=== PATIENT | female | born 1995 | race Two or more races ===

== ENCOUNTER 2023-11-09 14:36 | Observation (INO) | payer MEDICAID | END 2023-11-09 15:46 | disposition home or self-care (01) | LOC: LDRP 14:36 → UNDOADMOB 14:36 → LDRP 15:14 → UNDODISOB 15:46 | PROVIDERS: ADMIT Obstetrics & Gynecology; ATTEND Obstetrics & Gynecology | DX: O26.892 Other specified pregnancy related conditions, second trimester (principal); N89.8 Other specified noninflammatory disorders of vagina; Z3A.28 28 weeks gestation of pregnancy | CPT/HCPCS: 59025; 81002; 94760; G0378 ==

== ENCOUNTER 2023-12-15 09:23 | Observation (INO) | payer MEDICAID ==
[~2023-12-15] VITALS: Ht 160 cm; Wt 84.8 kg
[2023-12-15] MEDS ORDERED: PREN-96 PO (11:56)
== END 2023-12-15 12:21 | disposition home or self-care (01) ==
LOC: LDRP 11:00 → UNDOADMOB 11:00 → LDRP 11:22 → UNDODISOB 12:21
PROVIDERS: ADMIT Obstetrics & Gynecology; ATTEND Obstetrics & Gynecology
DX: O24.419 Gestational diabetes mellitus in pregnancy, unspecified control (principal); Z3A.33 33 weeks gestation of pregnancy
CPT/HCPCS: 59025; 76818; 81002; 82948; 82962; 94760; G0378

== ENCOUNTER 2023-12-22 08:28 | Observation (INO) | payer MEDICAID ==
[~2023-12-22 08:28] MED LIST: PREN-96 PO
== END 2023-12-22 11:01 | disposition home or self-care (01) ==
LOC: LDRP 09:22 → UNDOADMOB 09:22 → LDRP 09:25
PROVIDERS: ADMIT Obstetrics & Gynecology; ATTEND Obstetrics & Gynecology
DX: O24.419 Gestational diabetes mellitus in pregnancy, unspecified control (principal); O26.893 Other specified pregnancy related conditions, third trimester; R10.30 Lower abdominal pain, unspecified; O99.891 Other specified diseases and conditions complicating pregnancy; M54.9 Dorsalgia, unspecified; Z3A.34 34 weeks gestation of pregnancy
CPT/HCPCS: 59025; 76818; 81002; 82948; 82962; 94760; G0378

== ENCOUNTER 2023-12-29 08:05 | Observation (INO) | payer MEDICAID ==
[~2023-12-29] VITALS: Ht 160 cm; Wt 85.3 kg
== END 2023-12-29 13:06 | disposition home or self-care (01) ==
LOC: LDRP 11:33
PROVIDERS: ADMIT Obstetrics & Gynecology; ATTEND Obstetrics & Gynecology
DX: O24.419 Gestational diabetes mellitus in pregnancy, unspecified control (principal); Z3A.35 35 weeks gestation of pregnancy
CPT/HCPCS: 59025; 76818; 81002; 82962; 94760; G0378

== ENCOUNTER 2024-01-04 11:00 | Observation (INO) | payer MEDICAID | END 2024-01-04 12:41 | disposition home or self-care (01) | LOC: LDRP 11:00 → UNDOADMOB 11:00 → LDRP 11:13 | PROVIDERS: ADMIT Obstetrics & Gynecology; ATTEND Obstetrics & Gynecology | DX: O24.410 Gestational diabetes mellitus in pregnancy, diet controlled (principal); Z3A.36 36 weeks gestation of pregnancy | CPT/HCPCS: 59025; 76818; 81002; 82948; 82962; 94760; G0378 ==

== ENCOUNTER 2024-01-11 11:00 | Observation (INO) | payer MEDICAID ==
[2024-01-11] MEDS ORDERED: METF-370 PO (12:07)
== END 2024-01-11 12:37 | disposition home or self-care (01) ==
LOC: LDRP 11:00
PROVIDERS: ADMIT Obstetrics & Gynecology; ATTEND Obstetrics & Gynecology
DX: O24.419 Gestational diabetes mellitus in pregnancy, unspecified control (principal); Z3A.37 37 weeks gestation of pregnancy
CPT/HCPCS: 59025; 76818; 81002; 82948; 82962; 94760; G0378

== ENCOUNTER 2024-01-14 17:00 | Observation (INO) | payer MEDICAID ==
[~2024-01-14 17:00] MED LIST changes: +METF-370 PO
== END 2024-01-14 20:13 | disposition home or self-care (01) ==
LOC: LDRP 17:00
PROVIDERS: ADMIT Obstetrics & Gynecology; ATTEND Obstetrics & Gynecology
DX: O24.419 Gestational diabetes mellitus in pregnancy, unspecified control (principal); Z3A.37 37 weeks gestation of pregnancy
CPT/HCPCS: 59025; 76818; 81002; 82948; 82962; G0378

== ENCOUNTER 2024-01-17 08:00 | Observation (INO) | payer MEDICAID | END 2024-01-17 09:06 | disposition home or self-care (01) | LOC: LDRP 08:00 | PROVIDERS: ADMIT Obstetrics & Gynecology; ATTEND Obstetrics & Gynecology | DX: O24.419 Gestational diabetes mellitus in pregnancy, unspecified control (principal); Z3A.37 37 weeks gestation of pregnancy | CPT/HCPCS: 59025; 76818; 81002; 82948; 82962; 94760; G0378 ==

== ENCOUNTER 2024-01-20 08:08 | Observation (INO) | payer MEDICAID | END 2024-01-20 09:57 | disposition home or self-care (01) | LOC: UNDOADMOB 08:08 → LDRP 08:08 | PROVIDERS: ADMIT Obstetrics & Gynecology; ATTEND Obstetrics & Gynecology | DX: O24.419 Gestational diabetes mellitus in pregnancy, unspecified control (principal); O36.8130 Decreased fetal movements, third trimester, not applicable or unspecified; Z3A.38 38 weeks gestation of pregnancy | CPT/HCPCS: 59025; 76818; 81002; 82948; 82962; 94760; G0378 ==

== ENCOUNTER 2024-01-22 07:58 | Observation (INO) | payer MEDICAID | END 2024-01-22 10:00 | disposition home or self-care (01) | LOC: LDRP 07:58 | PROVIDERS: ADMIT Obstetrics & Gynecology; ATTEND Obstetrics & Gynecology | DX: O24.419 Gestational diabetes mellitus in pregnancy, unspecified control (principal); Z3A.38 38 weeks gestation of pregnancy | CPT/HCPCS: 59025; 76818; 81002; 82948; 94760; G0378 ==

== ENCOUNTER 2024-01-25 06:47 | Inpatient (IN) | payer MEDICAID ==
[~2024-01-25] VITALS: Ht 160 cm; Wt 85.7 kg
[2024-01-25] MEDS ORDERED: WITCH HAZEL-GLYCERIN PAD TOP PRN (07:15)
[2024-01-25] MEDS ORDERED: PHISODERM TOP SOLN 240ML BTL TOP PRN (07:15)
[2024-01-25] MEDS ORDERED: DERMOPLAST 60ML BOTTLE TOP PRN (07:15)
[2024-01-25] MEDS ORDERED: BUTORPHANOL TARTRATE 2 MG/1 ML VIAL IV PRN ×2 (07:15)
[2024-01-25] MEDS ORDERED: LIDOCAINE 2%HCL (LOCAL ANESTH.) INJ 20ML MDV IJ PRN (07:15)
[2024-01-25 07:37] LABS: Basophils # (auto) 0 10 ^3/uL (0-0.2); Basophils % (auto) 0.2 % (0.0-2.0); Eosinophils # (auto) 0.1 10 ^3/uL (0-0.8); Eosinophils % (auto) 1.4 % (0.0-7.0); Hematocrit 32.9 % (36.0-46.0); Hemoglobin 11.4 g/dL (12.2-16.2); Lymphocytes # (auto) 0.9 10 ^3/uL (0.4-5.4); Lymphocytes % (auto) 12.2 % (10.0-50.0); Mean Corpuscular Hemoglobin 30.8 pg (28.0-32.0); Mean Corpuscular Hgb Conc. 34.7 g/dL (32.0-36.0); Mean Corpuscular Volume 88.9 fL (80.0-100.0); Monocytes # (auto) 0.5 10 ^3/uL (0-1.3); Monocytes % (auto) 7.4 % (0.0-12.0); Neutrophils # (auto) 5.7 10 ^3/uL (1.6-8.6); Neutrophils % (auto) 78.8 % (37.0-80.0); Nucleated Red Blood Cells % 0.1 %; Red Cell Distribution Width 15.4 % (11.8-14.3); White Blood Cell 7.2 10^3/uL (4.4-10.8)
[2024-01-25 07:51] LABS: INR 0.94 (0.9-1.15); Partial Thromboplastin Time 27.5 SEC (24.5-34.5)
[2024-01-25 07:58] LABS: Alanine Aminotransferase 13 U/L (7-40); Albumin 3.7 g/dL (3.2-4.8); Alkaline Phosphatase 143 U/L (46-116); Anion Gap 9 (5-15); Aspartate Aminotransferase 11 U/L (13-40); Blood Urea Nitrogen 6 mg/dL (9-23); Calcium 9.2 mg/dL (8.7-10.4); Carbon Dioxide 20 mmol/L (20-30); Chloride 107 mmol/L (98-107); Glucose 84 mg/dL (74-106); Potassium 3.7 mmol/L (3.5-5.1); Sodium 136 mmol/L (136-145)
[2024-01-25 07:59] LABS: Bilirubin, Total 0.5 mg/dL (0.2-1.0)
[2024-01-25] MEDS ORDERED: ACCU-CHEK COMFORT CURVE STRIP VI SCH (08:00)
[2024-01-25 08:02] LABS: Urine Bacteria FEW /hpf (None Seen); Urine Blood Negative /uL (Negative); Urine Clarity Ex.Turbid (Clear); Urine Color Light-Orange (Yellow); Urine Mucus FEW (None Seen); Urine Protein, UAD TRACE (Negative); Urine Specific Gravity 1.015 (1.001-1.035); Urine Urobilinogen Normal (Negative); Urine WBC 25 /hpf (0 - 5); Urine pH 5.5 (5.0-9.0)
[2024-01-25 08:17] LABS: Amphetamine Screen, Urine Neg (NEGATIVE); Barbiturate Scree,Urine Neg (NEGATIVE); Benzodiazephine Screen, Urine Neg (NEGATIVE); Cocaine Screen, Urine Neg (NEGATIVE); Opiate Scree,Urine Neg (NEGATIVE)
[2024-01-25 08:18] LABS: Cannabinoid Screen, Urine Neg (NEGATIVE); Phencyclidine Screen, Urine Neg (NEGATIVE)
[2024-01-25] MEDS: miSOPROStol 50 MCG per PRE-CUT 1/2 TAB PO PRN (08:39)
[2024-01-25] MEDS: PENICILLIN G POT 5MIL/D5 50ML 50 ML IV ONE (08:40)
[2024-01-25] MEDS ORDERED: TERBUTALINE SULFATE 1 MG/ML 1ML VIAL SC PRN (12:30)
[2024-01-25] MEDS: PENICILLIN G POTASSIUM 2,500,000 UNITS in D5W 5% 50 ML IV SCH (12:58)
[2024-01-25] MEDS ORDERED: NALOXONE HCL 0.4 MG/ML VIAL IV ONE ×2 (13:30)
[2024-01-25] MEDS ORDERED: ePHEDrine SULFATE 50 MG/ML AMP IV ONE (13:30)
[2024-01-25] MEDS: fentaNYL CITRATE 100 MCG/2 ML VL IV ONE ×2 (14:49→14:50)
[2024-01-25] MEDS: ROPIVACAINE HCL 200 ML ONE (14:51)
[2024-01-25] MEDS: LACT. RINGERS/OXYTOCIN 20UNITS 1,000 ML IV SCH (15:40)
[2024-01-25] MEDS: LACTATED RINGER'S 1,000 ML IV SCH (16:35)
[2024-01-25] MEDS: D5W/LACTATED RINGERS 1,000 ML IV SCH (19:38)
[2024-01-26] MEDS ORDERED: ROPIVACAINE HCL 200 ML ONE ×2 (01:07→06:55)
[2024-01-26] MEDS: ePHEDrine SULFATE 50 MG/ML AMP IV ONE (02:15)
[2024-01-26] MEDS ORDERED: METHYLERGONOVINE MALEATE 0.2 MG/ML AMP IM ONE (08:28)
[2024-01-26] MEDS: LACT. RINGERS/OXYTOCIN 20UNITS 500 ML IV ONE ×2 (08:59)
[2024-01-26] MEDS: ROPIVACAINE HCL 200 ML ONE (09:00)
[2024-01-26] MEDS ORDERED: ONDANSETRON ODT 4 MG TAB PO PRN (09:00)
[2024-01-26] MEDS: fentaNYL CITRATE 100 MCG/2 ML VL ONE (09:01)
[2024-01-26] MEDS: ACETAMINOPHEN 325 MG TAB PO PRN (11:14)
[2024-01-26 15:00] VITALS: BP 96/58; PULSE 94; RESP 16; TEMP 98.8; O2SAT 96
[2024-01-26] MEDS: IBUPROFEN 600 MG TAB PO PRN (16:03)
[2024-01-26 19:00] VITALS: BP 112/58; PULSE 83; RESP 16; TEMP 97.6; O2SAT 97
[2024-01-26 23:30] VITALS: BP 102/56; PULSE 80; RESP 16; TEMP 98.2; O2SAT 97
[2024-01-27 03:00] VITALS: BP 113/56; PULSE 74; RESP 18; TEMP 98; O2SAT 98
[2024-01-27 06:50] VITALS: BP 107/57; PULSE 75; RESP 16; TEMP 97.8; O2SAT 97
[2024-01-27 11:00] VITALS: BP 112/72; PULSE 73; RESP 16; TEMP 97.6; O2SAT 98
== END 2024-01-27 11:55 | disposition home or self-care (01) | DRG 560 ==
LOC: LDRP 06:47
PROVIDERS: ADMIT Obstetrics & Gynecology; ATTEND Obstetrics & Gynecology
PROC: 10E0XZZ Delivery of Products of Conception, External Approach (ICD-10-PCS; principal; 2024-01-26)
PROC: 3E0DXGC Introduction of Other Therapeutic Substance into Mouth and Pharynx, External Approach (ICD-10-PCS; 2024-01-26)
PROC: 3E0R3BZ Introduction of Anesthetic Agent into Spinal Canal, Percutaneous Approach (ICD-10-PCS; 2024-01-26)
PROC: 00HU33Z Insertion of Infusion Device into Spinal Canal, Percutaneous Approach (ICD-10-PCS; 2024-01-26)
DX: O24.425 Gestational diabetes mellitus in childbirth, controlled by oral hypoglycemic drugs (principal); Z37.0 Single live birth; Z3A.39 39 weeks gestation of pregnancy; Z91.018 Allergy to other foods
CPT/HCPCS: 36415; 59025; 59409; 62282; 80053; 80307; 81001; 82948; 82962; 85025; 85610; 85730; 86592; 86803; 86850; 86870; 86900; 86901; 94760; 96360; 96361; 96365; 96366; 96374; G0378; J2540; J2590; J7060

== ENCOUNTER 2024-04-14 06:13 | Day surgery (SDC) | payer MEDICAID ==
[2024-04-11 11:47] LABS: Urine Bacteria None Seen /hpf (None Seen)
--- NOTE | 2024-04-11 11:47 | DVHHP ---
ADMIT DATE: 04/11/2024 CHIEF COMPLAINT: Desires bilateral tubal ligation. HISTORY OF PRESENT ILLNESS: The patient is a 28-year-old 2, para 2, admitted for laparoscopic placement of Filshie clips. She does not want any other form of contraception. Risks, complication, failure rate discussed with the patient. Possibility of exploratory laparotomy discussed with the patient. Possibility of bleeding, PE, DVT, failure rate and use of Filshie clips discussed with the patient. The patient fully understands and wishes to proceed with planned procedure. PAST MEDICAL HISTORY: None. PAST SURGICAL HISTORY: None. SOCIAL HISTORY: None. FAMILY HISTORY: None. OBSTETRIC AND GYNECOLOGIC HISTORY: Two normal vaginal delivery. REVIEW OF SYSTEMS: Consistent with HPI. PHYSICAL EXAMINATION: VITAL SIGNS: Stable, afebrile. HEENT: Within normal limits. CARDIOVASCULAR: Regular rate and rhythm. LUNGS: Clear to auscultation. BREASTS: Symmetrical. No masses. ABDOMEN: Soft, nontender, obese. PELVIC: External genitalia within normal limits. Vagina normal. Cervix grossly normal. Uterus 7 weeks size. Adnexa nonpalpable. EXTREMITIES: No clubbing, cyanosis or edema. IMPRESSION: Multiparity, desires tubal sterilization. PLAN: Laparoscopic placement of Filshie clips. Informed consent obtained. Risks, complication, failure rate discussed with the patient. Options reviewed. All questions answered. The patient fully understands. She wishes to proceed with planned procedure. The use of Filshie clips discussed with the patient. The patient fully understands. She wishes to proceed with planned procedure. DO LYUBOV Vasquez TID: [id number] RECEIPT: [id number]
[2024-04-11 12:04] LABS: Basophils # (auto) 0 10 ^3/uL (0-0.2); Basophils % (auto) 0.6 % (0.0-2.0); Eosinophils # (auto) 0.3 10 ^3/uL (0-0.8); Eosinophils % (auto) 4.4 % (0.0-7.0); Hematocrit 39.2 % (36.0-46.0); Hemoglobin 13.4 g/dL (12.2-16.2); Lymphocytes # (auto) 1.4 10 ^3/uL (0.4-5.4); Lymphocytes % (auto) 21.4 % (10.0-50.0); Mean Corpuscular Hemoglobin 29.6 pg (28.0-32.0); Mean Corpuscular Hgb Conc. 34.1 g/dL (32.0-36.0); Mean Corpuscular Volume 86.7 fL (80.0-100.0); Monocytes # (auto) 0.4 10 ^3/uL (0-1.3); Monocytes % (auto) 6.2 % (0.0-12.0); Neutrophils # (auto) 4.3 10 ^3/uL (1.6-8.6); Neutrophils % (auto) 67.4 % (37.0-80.0); Nucleated Red Blood Cells % 0.1 %; Platelet Count (auto) 266 10^3/uL (140-450); Red Blood Cells 4.52 10^6/uL (4.0-5.20); Red Cell Distribution Width 14.5 % (11.8-14.3); White Blood Cell 6.4 10^3/uL (4.4-10.8)
[2024-04-11 12:19] LABS: Partial Thromboplastin Time 29.1 SEC (24.5-34.5); Prothrombin Time 10.6 sec (9.3-11.8)
[2024-04-11 12:21] LABS: Urine Blood Negative /uL (Negative); Urine Clarity Clear (Clear); Urine Color Light-Yellow (Yellow); Urine Protein, UAD Negative (Negative); Urine Specific Gravity 1.007 (1.001-1.035); Urine Urobilinogen Normal (Negative); Urine WBC 1 /hpf (0 - 5)
[2024-04-11 13:07] LABS: Alanine Aminotransferase 19 U/L (7-40); Albumin 4.5 g/dL (3.2-4.8); Alkaline Phosphatase 93 U/L (46-116); Anion Gap 4 (5-15); Aspartate Aminotransferase 11 U/L (13-40); BUN/Creatinine Ratio 9.8 (10.0-20.0); Blood Urea Nitrogen 6 mg/dL (9-23); Calcium 9.7 mg/dL (8.7-10.4); Carbon Dioxide 27 mmol/L (20-31); Chloride 107 mmol/L (98-107); Glucose 88 mg/dL (74-106); Potassium 4.5 mmol/L (3.5-5.1); Sodium 138 mmol/L (136-145)
[2024-04-11 13:08] LABS: Bilirubin, Total 0.5 mg/dL (0.2-1.0)
[~2024-04-14] VITALS: Ht 165.1 cm; Wt 79.4 kg
[2024-04-14] MEDS ORDERED: ceFAZolin 2 GM/D5W100ml 100 ML IV ONE (06:41)
[2024-04-14] MEDS ORDERED: LIDOCAINE W/ EPINEPHRINE 1% 20ML VIAL ONE (06:45)
[2024-04-14] MEDS ORDERED: LIDOCAINE 2% JELLY 11ml (GLYDO) ONE (06:45)
[2024-04-14] MEDS ORDERED: BUPIVACAINE 0.25% INJ 50ML VIAL ONE (06:45)
[2024-04-14] MEDS ORDERED: fentaNYL CITRATE 100 MCG/2 ML VL ONE (07:12)
[2024-04-14] MEDS ORDERED: MIDAZOLAM HCL 2MG/2ML 2ml VIAL (1mg/ml) ONE (07:12)
[2024-04-14] MEDS ORDERED: MEPERIDINE HCL (50 MG/ML) 1 ML VIAL ONE (07:12)
[2024-04-14] MEDS ORDERED: ONDANSETRON HCL 4 MG/2 ML VIAL IV PRN (07:15)
[2024-04-14] MEDS ORDERED: LACTATED RINGER'S 1,000 ML IV SCH (07:15)
[2024-04-14] MEDS ORDERED: ZOFR4T PO (07:16)
[2024-04-14] MEDS ORDERED: HYDR-4072 PO (07:16)
[2024-04-14] MEDS ORDERED: IBUP-1456 PO (07:16)
[2024-04-14] MEDS ORDERED: DexAMETHasone SOD PHOS 10MG/1ML VIAL INJ ONE (07:28)
[2024-04-14] MEDS ORDERED: PROPOFOL 10 MG/ML 20 ML IV ONE (07:28)
[2024-04-14] MEDS ORDERED: ROCURONIUM 10MG/ML 10ML VIAL IV ONE (07:34)
[2024-04-14] MEDS ORDERED: ONDANSETRON HCL 4 MG/2 ML VIAL ONE (07:34)
[2024-04-14] MEDS: BUPIVACAINE 0.25% INJ 50ML VIAL IJ ONE (07:53)
[2024-04-14] MEDS ORDERED: SUGAMMADEX 200mg/2ml Vial (100MG/ML) IV ONE (07:55)
[2024-04-14] MEDS ORDERED: ePHEDrine SULFATE 50 MG/ML AMP IV PRN (08:00)
[2024-04-14] MEDS ORDERED: hydrALAZINE HCL 20 MG/ML VL IV PRN (08:00)
[2024-04-14] MEDS ORDERED: ONDANSETRON HCL 4 MG/2 ML VIAL IV ONE (08:00)
[2024-04-14] MEDS ORDERED: HYDROmorphone HCL 2 MG/ML VL/or syr IV PRN (08:00)
[2024-04-14] MEDS ORDERED: MORPHINE SULFATE 4 MG/ML SYR/VIAL IV PRN (08:00)
[2024-04-14] MEDS ORDERED: MIDAZOLAM HCL 2MG/2ML 2ml VIAL (1mg/ml) IV PRN (08:00)
[2024-04-14 08:12] VITALS: RESP 16; TEMP 97.8; O2SAT 100
[2024-04-14 08:42] VITALS: BP 106/58; PULSE 76; RESP 12; O2SAT 99
--- NOTE | 2024-04-14 08:57 | DVHOP2 ---
Operative Report DATE OF OPERATION: 04/14/24 PREOPERATIVE DIAGNOSES: 1. Desires elective tubal sterilization. 2. morbid obesity POSTOPERATIVE DIAGNOSES: 1. Desires elective tubal sterilization. 2. morbid obesity SURGEON: America Packer D.O./graham ANESTHESIOLOGIST: herman TYPE OF ANESTHESIA : General. CONSENT: The patient was informed of the risks and benefits of the procedure. The patient was informed of the risks and benefits of the procedure. These incl ude but are not limited to , complications of anesthesia, postoperative infection, incomplete relief of symptoms, recurrence of symptoms, damage to blood vessels, nerves and tendons, deep venous thrombosis, pulmonary embolism and possible need for repeat surgery in the future. FINDINGS: Cervix is grossly normal appearing. Uterus is 8 weeks' size. Adnexa nonpalpable. COMPLICATIONS: None. BLOOD PRODUCTS USED: None. PROCEDURES: Laparoscopic placement of Filschi Clips to bilateral tubes PROCEDURE IN DETAIL: The patient was taken to the operating room where she was placed under general anesthesia. The patient was then prepped and draped in the usual sterile manner in the dorsal lithotomy position. The bladder was emptied using a straight catheter. Examination under anesthesia revealed the above findings. A weighted speculum was placed in the vagina. The anterior lip of the cervix was grasped using single-tooth tenaculum. Cervix was dilated. Uterus sounded to 8 cm. HUMI catheter was placed. Attention was then turned to the abdomen where a Veress needle was introduced. Abdomen was distended with 3L of CO2 gas. Using Visiport, abdomen was entered under direct visualization. Survey of abdominal cavity revealed normal finding. A 8 mm trocar was placed into the suprapubic region. Filshie clip was then loaded on the right tube as well as the left. No bleeding was noted. All the instruments were removed from the abdomen and pelvis. CO2 gas released. Incisional ports were closed using #4-0 Vicryl and tyrell for the larger port. The patient tolerated the procedure well. All instruments were removed from the patient's cervix. The patient was taken to the recovery room in a stable condition. ESTIMATED BLOOD LOSS: 20 mL AMERICA PACKER DO Apr 14, 2024 08:57
== END 2024-04-14 08:55 | disposition home or self-care (01) ==
LOC: SUR 06:13
PROVIDERS: ATTEND Obstetrics & Gynecology
DX: Z30.2 Encounter for sterilization (principal); E66.01 Morbid (severe) obesity due to excess calories; J45.909 Unspecified asthma, uncomplicated; Z91.018 Allergy to other foods
CPT/HCPCS: 36415; 58671; 80053; 81001; 81025; 84702; 85025; 85610; 85730; 86850; 86870; 86900; 86901; J1100; J2004; J2175; J2250; J2405; J2704; J3010; J3490